=== PATIENT | male | born 1965 | race American Indian/Alaskan Native ===

== ENCOUNTER 2019-04-23 00:28 | Emergency (ER) | payer MEDICARE ==
[2019-04-23 01:42] LABS: Basophils # (Auto) 0.1 K/mm3 (0.0-0.1); Basophils % (Auto) 0.7 % (0.0-1.8); Eosinophils # (Auto) 0.1 K/mm3 (0.0-0.4); Eosinophils % (Auto) 0.6 % (0.0-4.3); Hematocrit 40.6 % (35.5-45.6); Hemoglobin 13.8 gm/dl (11.8-15.2); Lymphocytes # (Auto) 1.7 K/mm3 (1.2-5.4); Lymphocytes % (Auto) 13.4 % (13.4-35.0); Mean Corpuscular HGB Conc 34 % (32-34); Mean Corpuscular Volume 86 fl (84-94); Monocytes # (Auto) 0.9 K/mm3 (0.0-0.8); Monocytes % (Auto) 7.2 % (0.0-7.3); Red Cell Distribution Width 13.1 % (13.2-15.2)
[2019-04-23 02:06] LABS: Alanine Aminotransferase 43 units/L (7-56); Albumin 4.6 g/dL (3.9-5); Calcium 9.5 mg/dL (8.4-10.2); Hemolysis Index 1
[2019-04-23 02:07] LABS: Platelet Count 198 K/mm3 (140-440)
[2019-04-23 02:11] LABS: Bilirubin,Urine NEG (Negative); Blood,Urine NEG (Negative); Color,Urine Straw (Yellow); Mucus,Urine 1+ /HPF; Protein,Urine <15 mg/dL mg/dL (Negative); Urobilinogen,Urine < 2.0 mg/dL (<2.0); WBC,Urine < 1.0 /HPF (0.0-6.0)
[2019-04-23 02:23] LABS: BUN/Creatinine Ratio 11; Blood Urea Nitrogen 10 mg/dL (9-20)
[2019-04-23 02:30] LABS: Bilirubin,Direct < 0.2 mg/dL (0-0.2)
[2019-04-23] MEDS ORDERED: DILAUDID IV ONE (03:00)
[2019-04-23] MEDS ORDERED: NACL 0.9% 1000 ML 1,000 ML IV ONE ×2 (03:00→03:01)
--- NOTE | 2019-04-23 03:01 | Emergency Department Report ---
ED General Adult HPI - General Chief complaint: Abdominal Pain Stated complaint: ABD PAIN Time Seen by Provider: 04/23/19 02:13 Source: patient, RN notes reviewed Mode of arrival: Ambulatory Limitations: Physical Limitation - History of Present Illness Initial comments: This is a 54-year-old gentleman. He does not have a primary care doctor that he can recall. He does have a "prostate doctor", and a history of traumatic left leg amputation. He also endorses a history of abdominal wall hernia, diagnosed 3-4 months ago. He presents to the ER today with complaint of right flank, right lower quadrant pain. The pain started in the past day or 2. It radiates to the back. It is aching and throbbing. It increases with palpation and range of motion. It decreases with rest. Contrary to what is documented in nursing note, the patient did not fall or hit his back, however, he does note that he in the shower, and twisted his back. He also denies testicular pain, and he denies urinary symptoms. He denies fever. He denies vomiting. His pain is improved in the ER with hydromorphone. -: Gradual Location: back, abdomen Radiation: back Quality: other Consistency: other Improves with: other Worsens with: other - Related Data Previous Rx's Medication Instructions Recorded Last Taken Type Acetaminophen [Non-Aspirin Extra 500 mg PO Q6HR PRN #30 tablet 04/23/19 Unknown Rx Strength] Dicyclomine [Bentyl] 10 mg PO QID PRN #20 capsule 04/23/19 Unknown Rx Allergies Allergy/AdvReac Type Severity Reaction Status Date / Time ibuprofen [From Motrin] Allergy Anaphylaxis Verified 04/23/19 00:57 ED Review of Systems ROS: Stated complaint: ABD PAIN Other details as noted in HPI Constitutional: denies: fever Eyes: denies: eye discharge ENT: denies: epistaxis Respiratory: denies: cough Cardiovascular: denies: chest pain Genitourinary: denies: testicular pain Musculoskeletal: back pain Skin: denies: lesions Neurological: denies: weakness Hematological/Lymphatic: denies: easy bleeding ED Past Medical Hx - Past Medical History Previous Medical History?: No - Surgical History Past Surgical History?: Yes Additional Surgical History: left leg amputation - Social History Smoking Status: Current Every Day Smoker Substance Use Type: None - Medications Home Medications: Home Medications Medication Instructions Recorded Confirmed Last Taken Type Acetaminophen [Non-Aspirin Extra 500 mg PO Q6HR PRN #30 tablet 04/23/19 Unknown Rx Strength] Dicyclomine [Bentyl] 10 mg PO QID PRN #20 capsule 04/23/19 Unknown Rx ED Physical Exam - General Limitations: No Limitations General appearance: alert, in no apparent distress - Head Head exam: Present: atraumatic, normocephalic - Eye Eye exam: Present: normal appearance, EOMI. Absent: nystagmus - ENT ENT exam: Present: normal exam, normal orophraynx, mucous membranes moist, norm al external ear exam - Neck Neck exam: Present: normal inspection, full ROM. Absent: tenderness, meningismus - Respiratory Respiratory exam: Present: normal lung sounds bilaterally. Absent: respiratory distress - Cardiovascular Cardiovascular Exam: Present: normal rhythm, tachycardia, normal heart sounds. Absent: systolic murmur, diastolic murmur, rubs, gallop - GI/Abdominal GI/Abdominal exam: Present: soft, tenderness, other (minimal right flank tenderness. There is no rebound, guarding or peritoneal signs.). Absent: distended, guarding, rebound, rigid, pulsatile mass - Rectal Rectal exam: Present: deferred - exam: Present: normal inspection, other (there is no testicular tenderness. There is normal testicular lie bilaterally. There is normal cremasteric reflex bilaterally.) External exam: Present: normal external exam, other (chaperoned by Amirah) - Extremities Exam Extremities exam: Present: normal inspection, full ROM, other (2+ pulses noted in the bilateral upper extremities. 2+ pulses noted in the right lower extremity. Muscular compartment soft. Pelvis is stable. 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 Absent: calf tenderness - Back Exam Back exam: Present: normal inspection, full ROM. Absent: CVA tenderness (L), muscle spasm, paraspinal tenderness, vertebral tenderness - Neurological Exam Neurological exam: Present: alert, other (Extraocular movements intact. Tongue midline. No facial droop. Facial sensation intact to light touch in the V1, V2, V3 distribution bilaterally. 5 and 5 strength in 4 extremities.. Sensation is intact to light touch in 4 extremities.). Absent: motor sensory deficit - Psychiatric Psychiatric exam: Present: normal affect, normal mood - Skin Skin exam: Present: warm, dry, intact, normal color. Absent: rash ED Course Vital Signs 04/23/19 04/23/19 04/23/19 00:49 02:13 02:30 Temperature 98.7 F 98.6 F Pulse Rate 129 H 111 H 111 H Respiratory 20 16 14 Rate Blood Pressure 126/90 114/77 Blood Pressure 119/83 [Left] O2 Sat by Pulse 96 93 90 Oximetry 04/23/19 04/23/19 04/23/19 03:00 04:00 05:07 Temperature 98.2 F Pulse Rate 105 H 108 H 92 H Respiratory 16 17 13 Rate Blood Pressure 118/77 Blood Pressure 111/64 106/55 [Left] O2 Sat by Pulse 93 92 Oximetry - Reevaluation(s) Reevaluation #1: 04/23/19 04:43 Differential diagnosis, including but not limited to: Hernia, renal colic, appendicitis, constipation, obstruction Assessment and plan: 54-year-old gentleman with abdominal pain, and recent mechanical twisting of his back. He is afebrile with reassuring vital signs and his tachycardia has resolved. He is very clinically well-appearing. His abdomen is not significant only tender. Do not suspect bacteremia clinically. A lactic acid was sent prior to my personal evaluation and initially is elevated, and now normalized. CT scan of the abdomen and pelvis interpretation is pending at this time. Reevaluation #2: 04/23/19 05:[address] scan of the abdomen and pelvis negative for acute disease. Patient does not appear to have an emergent medical condition at this time. He is medically stable to discharge. His abdomen is soft on repeat examination and he is resting comfortably in his stretcher. ED Medical Decision Making - Lab Data Result diagrams: 04/23/19 01:20 04/23/19 01:20 Vital Signs 04/23/19 04/23/19 04/23/19 00:49 02:13 02:30 Temperature 98.7 F 98.6 F Pulse Rate 129 H 111 H 111 H Respiratory 20 16 14 Rate Blood Pressure 126/90 114/77 Blood Pressure 119/83 [Left] O2 Sat by Pulse 96 93 90 Oximetry 04/23/19 04/23/19 03:00 04:00 Temperature Pulse Rate 105 H 108 H Respiratory 16 17 Rate Blood Pressure 118/77 Blood Pressure 111/64 [Left] O2 Sat by Pulse 93 Oximetry Temp Pulse Resp BP Pulse Ox 98.6 F 108 H 17 111/64 93 04/23/19 02:13 04/23/19 04:00 04/23/19 04:00 04/23/19 04:00 04/23/19 04:00 Lab Results 04/23/19 04/23/19 04/23/19 Range/Units 01:20 01:20 01:20 WBC 12.7 H (4.5-11.0) K/mm3 RBC 4.70 (3.65-5.03) M/mm3 Hgb 13.8 (11.8-15.2) gm/dl Hct 40.6 (35.5-45.6) % MCV 86 (84-94) fl MCH 29 (28-32) pg MCHC 34 (32-34) % RDW 13.1 L (13.2-15.2) % Plt Count 198 (140-440) K/mm3 Lymph % (Auto) 13.4 (13.4-35.0) % Republic % (Auto) 7.2 (0.0-7.3) % Eos % (Auto) 0.6 (0.0-4.3) % Baso % (Auto) 0.7 (0.0-1.8) % Lymph # 1.7 (1.2-5.4) K/mm3 Republic # 0.9 H (0.0-0.8) K/mm3 Eos # 0.1 (0.0-0.4) K/mm3 Baso # 0.1 (0.0-0.1) K/mm3 Seg Neutrophils % 78.1 H (40.0-70.0) % Seg Neutrophils # 9.9 H (1.8-7.7) K/mm3 Sodium 139 (137-145) mmol/L Potassium 3.7 (3.6-5.0) mmol/L Chloride 96.7 L (98-107) mmol/L Carbon Dioxide 28 (22-30) mmol/L Anion Gap 18 mmol/L BUN 10 (9-20) mg/dL Creatinine 0.9 (0.8-1.5) mg/dL Estimated GFR > 60 ml/min BUN/Creatinine Ratio 11 % Glucose 108 H (75-100) mg/dL Lactic Acid 2.10 H* (0.7-2.0) mmol/L Calcium 9.5 (8.4-10.2) mg/dL Total Bilirubin 0.20 (0.1-1.2) mg/dL Direct Bilirubin < 0.2 (0-0.2) mg/dL Indirect Bilirubin 0.0 mg/dL AST 33 (5-40) units/L ALT 43 (7-56) units/L Alkaline Phosphatase 73 (35-129) units/L Total Protein 8.4 H (6.3-8.2) g/dL Albumin 4.6 (3.9-5) g/dL Albumin/Globulin Ratio 1.2 % Lipase 42 (13-60) units/L Urine Color (Yellow) Urine Turbidity (Clear) Urine pH (5.0-7.0) Ur Specific Plato (1.003-1.030) Urine Protein (Negative) mg/dL Urine Glucose (UA) (Negative) mg/dL Urine Ketones (Negative) mg/dL Urine Blood (Negative) Urine Nitrite (Negative) Urine Bilirubin (Negative) Urine Urobilinogen (<2.0) mg/dL Ur Leukocyte Esterase (Negative) Urine WBC (Auto) (0.0-6.0) /HPF Urine RBC (Auto) (0.0-6.0) /HPF Urine Mucus /HPF 04/23/19 04/23/19 Range/Units 02:34 Unknown WBC (4.5-11.0) K/mm3 RBC (3.65-5.03) M/mm3 Hgb (11.8-15.2) gm/dl Hct (35.5-45.6) % MCV (84-94) fl MCH (28-32) pg MCHC (32-34) % RDW (13.2-15.2) % Plt Count (140-440) K/mm3 Lymph % (Auto) (13.4-35.0) % Republic % (Auto) (0.0-7.3) % Eos % (Auto) (0.0-4.3) % Baso % (Auto) (0.0-1.8) % Lymph # (1.2-5.4) K/mm3 Republic # (0.0-0.8) K/mm3 Eos # (0.0-0.4) K/mm3 Baso # (0.0-0.1) K/mm3 Seg Neutrophils % (40.0-70.0) % Seg Neutrophils # (1.8-7.7) K/mm3 Sodium (137-145) mmol/L Potassium (3.6-5.0) mmol/L Chloride (98-107) mmol/L Carbon Dioxide (22-30) mmol/L Anion Gap mmol/L BUN (9-20) mg/dL Creatinine (0.8-1.5) mg/dL Estimated GFR ml/min BUN/Creatinine Ratio % Glucose (75-100) mg/dL Lactic Acid 1.80 (0.7-2.0) mmol/L Calcium (8.4-10.2) mg/dL Total Bilirubin (0.1-1.2) mg/dL Direct Bilirubin (0-0.2) mg/dL Indirect Bilirubin mg/dL AST (5-40) units/L ALT (7-56) units/L Alkaline Phosphatase (35-129) units/L Total Protein (6.3-8.2) g/dL Albumin (3.9-5) g/dL Albumin/Globulin Ratio % Lipase (13-60) units/L Urine Color Straw (Yellow) Urine Turbidity Slightly-cloudy (Clear) Urine pH 6.0 (5.0-7.0) Ur Specific Plato 1.004 (1.003-1.030) Urine Protein <15 mg/dl (Negative) mg/dL Urine Glucose (UA) Neg (Negative) mg/dL Urine Ketones Neg (Negative) mg/dL Urine Blood Neg (Negative) Urine Nitrite Neg (Negative) Urine Bilirubin Neg (Negative) Urine Urobilinogen < 2.0 (<2.0) mg/dL Ur Leukocyte Esterase Neg (Negative) Urine WBC (Auto) < 1.0 (0.0-6.0) /HPF Urine RBC (Auto) 1.0 (0.0-6.0) /HPF Urine Mucus 1+ /HPF - Radiology Data Radiology results: report reviewed, image reviewed Print Report Referring Physician: TEDDY GARLAND Patient Name: SAY TUCKER Date of : 1965 Sex: Male Report Date: 2019-04-23 Report Status: Finalized Findings [facility] [address] [place] [address] Cat Scan Report Signed Patient: SAY TUCKER MR#: [id number] 1 : 1965 Acct:[id number] Age/Sex: 54 / M ADM Date: 04/23/19 Loc: ED Attending Dr: Ordering Physician: TEDDY GARLAND MD Date of Service: 04/23/19 Procedure(s): CT abdomen pelvis w con Accession Number(s): [id number] cc: TEDDY GARLAND MD CT ABDOMEN AND PELVIS WITH CONTRAST HISTORY: Right abdominal pain. Upper abdominal pain. Possible hernia. Back pain after fall on Friday. COMPARISON: No relevant prior imaging study available. TECHNIQUE: Axial, coronal and sagittal CT imaging of the abdomen and pelvis was performed after injection of 100 cc Omnipaque [address] scans at this location are performed using CT dose reduction for ALARA by means of automated exposure control. FINDINGS: LOWER CHEST: Dependent atelectasis is noted bilaterally. No additional significant abnormality. LIVER: No significant abnormality. BILIARY: Cholelithiasis is noted without evidence of acute cholecystitis. No biliary ductal dilatation. PANCRE : No significant abnormality. SPLEEN: No significant abnormality. ADRENALS: No significant abnormality. KIDNEYS AND URETERS: Bilateral renal cysts are seen without suspicious lesions, stones or hydroureteronephrosis. GI TRACT: No significant abnormality of the stomach, small bowel or colon. Unremarkable appendix. PERITONEUM: No free fluid. No free air. No fluid collection. LYMPH NODES: No significant adenopathy. VASCULATURE: No significant abnormality. URINARY BLADDER: No significant abnormality. REPRODUCTIVE ORGANS: No significant abnormality. ADDITIONAL FINDINGS: No significant hernia is identified. SKELETAL SYSTEM: No acute abnormality. Degenerative changes are seen throughout the spine. There is an old left inferior pubic ramal fracture. IMPRESSION: 1. No acute abnormality of the abdomen or pelvis. 2. Additional findings as above. Signer Name: Alvarez Garcia MD Signed: 04/23/2019 5:12 AM Workstation Name: [id number] Transcribed By: JENN Dictated By: Alvarez Garcia MD Electronically Authenticated By: Alvarez Garcia MD Signed Date/Time: 04/23/19 0512 DD/ 0508 TD/TT: Critical care attestation.: If time is entered above; I have spent that time in minutes in the direct care of this critically ill patient, excluding procedure time. ED Disposition Clinical Impression: Abdominal pain Disposition: DC-01 TO HOME OR SELFCARE Is pt being admited?: No Does the pt Need Aspirin: No Condition: Stable Additional Instructions: Take pain medications as needed/directed. Drink 4-6 cups of water per day for the next week. Do not take metformin medication, if patient takes this medication for the next 2 days. Follow up with a primary care doctor or [facility] within the next month. CT scan showed no obvious hernia today. Return to the ER right away with new, worse or different symptoms not present on initial ER evaluation. Referrals: [facility] [Provider Group] - 3-5 Days [facility] [Provider Group] - 3-5 Days
[2019-04-23 05:08] VITALS: BP 106/55
--- NOTE | 2019-04-23 05:16 | Cat Scan Report ---
CT ABDOMEN AND PELVIS WITH CONTRAST HISTORY: Right abdominal pain. Upper abdominal pain. Possible hernia. Back pain after fall on Friday . COMPARISON: No relevant prior imaging study available. TECHNIQUE: Axial, coronal and sagittal CT imaging of the abdomen and pelvis was performed after inje ction of 100 cc Omnipaque [address] scans at this location are performed using CT dose re duction for ALARA by means of automated exposure control. FINDINGS: LOWER CHEST: Dependent atelectasis is noted bilaterally. No additional significant abnormality. LIVER: No significant abnormality. BILIARY: Cholelithiasis is noted without evidence of acute cholecystitis. No biliary ductal dilatatio n. PANCREAS: No significant abnormality. SPLEEN: No significant abnormality. ADRENALS: No significant abnormality. KIDNEYS AND URETERS: Bilateral renal cysts are seen without suspicious lesions, stones or hydroureter onephrosis. GI TRACT: No significant abnormality of the stomach, small bowel or colon. Unremarkable appendix. PERITONEUM: No free fluid. No free air. No fluid collection. LYMPH NODES: No significant adenopathy. VASCULATURE: No significant abnormality. URINARY BLADDER: No significant abnormality. REPRODUCTIVE ORGANS: No significant abnormality. ADDITIONAL FINDINGS: No significant hernia is identified. SKELETAL SYSTEM: No acute abnormality. Degenerative changes are seen throughout the spine. There is a n old left inferior pubic ramal fracture. IMPRESSION: 1. No acute abnormality of the abdomen or pelvis. 2. Additional findings as above. Signer Name: Alvarez Garcia MD Signed: 04/23/2019 5:12 AM Workstation Name: [id number]
== END 2019-04-23 05:50 | disposition home or self-care (01) ==
LOC: ED 00:28
DX: R10.31 Right lower quadrant pain (principal); F17.200 Nicotine dependence, unspecified, uncomplicated; Z79.899 Other long term (current) drug therapy; Z98.890 Other specified postprocedural states; Z88.6 Allergy status to analgesic agent
CPT/HCPCS: 36415; 74177; 80048; 80076; 81001; 82140; 83690; 85025; 96374; 99284; J1170; J7030; Q9967